=== PATIENT | female | born 1995 | race African-American/Black ===

== ENCOUNTER 2017-08-08 23:35 | Emergency (ER) | payer MEDICAID ==
[2014-08-02 15:45] VITALS: BMI 45.3
[~2017-08-08 23:35] MED LIST: NIFEDIPINE ER30 MG PO; PRENATAL COMPLE1 TAB PO; PRENAVITE1 TAB PO
[2017-08-09 00:18] LABS: APPEARANCE CLEAR (CLEAR); BACTERIA NONE SEEN /hpf (NONE SEEN); BILIRUBIN NEGATIVE (NEGATIVE); COLOR YELLOW (YELLOW); EPITHELIAL CELLS OCC /hpf (0-5); GLUCOSE NEGATIVE (NEGATIVE); KETONE NEGATIVE (NEGATIVE); NITRITE NEGATIVE (NEGATIVE); PROTEIN TRACE mg/dL (NEGATIVE); RED CELLS - URINE 0-5 /hpf (0-5); SPECIFIC GRAVITY 1.015 (1.005-1.020); UROBILINOGEN NORMAL (NORMAL); WHITE CELLS - URINE RARE /hpf (0-5)
[2017-08-09 00:19] LABS: BASOPHILS 0.2 % (0-2); HEMATOCRIT 41.4 % (36.0-48.0); HEMOGLOBIN 13.9 g/dL (12-16); IMMATURE GRANULOCYTES 0.3 % (0-5); LYMPHOCYTES 31.5 % (15-50); MCH 29.6 pg (26.0-34.0); MCHC 33.6 g/dL (31.0-37.0); MCV 88.1 fL (80.0-100.0); MEAN PLATELET VOLUME 11.1 fL (7.4-10.4); MONOCYTES 7.6 % (2-11); NEUTROPHILS 58.4 % (40-80); RDW 12.6 % (11.5-14.5); WBC 8.9 10x3/uL (4.8-10.8)
[2017-08-09 00:20] LABS: PLATELET COUNT 343 10x3/uL (130-400)
[2017-08-09 00:27] LABS: HCG SERUM NEGATIVE (NEGATIVE)
== END 2017-08-09 00:57 | disposition home or self-care (01) ==
LOC: D.ER 23:35
PROVIDERS: Emergency Medicine; Nurse Practitioner Family
DX: N93.9 Abnormal uterine and vaginal bleeding, unspecified (principal); N94.6 Dysmenorrhea, unspecified

== ENCOUNTER 2017-11-18 11:46 | Emergency (ER) | payer BC ==
[2014-08-02 15:45] VITALS: BMI 45.3
== END 2017-11-18 13:24 | disposition home or self-care (01) ==
LOC: D.ER 11:46
DX: H69.92 Unspecified Eustachian tube disorder, left ear (principal); M54.2 Cervicalgia

== ENCOUNTER 2019-04-02 23:14 | Emergency (ER) | payer MEDICAID ==
[~2019-04-02] VITALS: Ht 167.6 cm; Wt 104.5 kg
[2019-04-02 23:46] VITALS: BP 114/73; Ht 167.6 cm; Wt 104.5 kg
== END 2019-04-03 02:05 | disposition left against medical advice (07) ==
LOC: D.ER 23:14
DX: M54.5 Low back pain (principal)

== ENCOUNTER 2020-01-20 21:16 | Emergency (ER) | payer MEDICAID ==
[~2020-01-20] VITALS: Ht 160 cm; Wt 131.8 kg
[2020-01-20 21:31] VITALS: Ht 160 cm; Wt 131.8 kg
[2020-01-20 22:02] LABS: BASOPHILS 0.2 % (0-2); EOSINOPHILS 2.5 % (0-7); HEMATOCRIT 39.7 % (36.0-48.0); HEMOGLOBIN 12.8 g/dL (12-16); IMMATURE GRANULOCYTES 0.2 % (0-5); LYMPHOCYTES 24.4 % (15-50); MCH 28.5 pg (26.0-34.0); MCHC 32.2 g/dL (31.0-37.0); MCV 88.4 fL (80.0-100.0); MEAN PLATELET VOLUME 10.6 fL (7.4-10.4); MONOCYTES 7.2 % (2-11); NEUTROPHILS 65.5 % (40-80); PLATELET COUNT 314 10x3/uL (130-400); RBC 4.49 10x6/uL (4.00-5.40); RDW 13.1 % (11.5-14.5); WBC 10.1 10x3/uL (4.8-10.8)
[2020-01-20 22:04] LABS: BILIRUBIN NEGATIVE (NEGATIVE); GLUCOSE NEGATIVE (NEGATIVE); HCG URINE NEGATIVE (NEGATIVE); KETONE NEGATIVE (NEGATIVE); NITRITE NEGATIVE (NEGATIVE); UROBILINOGEN NORMAL (NORMAL)
[2020-01-20 22:10] LABS: EPITHELIAL CELLS 0-5 /hpf (0-5); RED CELLS - URINE >50 /hpf (0-5); WHITE CELLS - URINE 0-5 /hpf (NEGATIVE)
[2020-01-20 22:10] LABS: ANION GAP 10.9 mmol/L (8-16); CALCIUM 8.5 mg/dL (8.5-10.1); CARBON DIOXIDE 25.8 mmol/L (21.0-32.0); POTASSIUM - SERUM 3.7 mmol/L (3.5-5.1)
[2020-01-20 22:11] LABS: BACTERIA FEW /hpf (NEGATIVE)
[2020-01-20 22:15] LABS: ALBUMIN 3.4 g/dL (3.4-5.0); BILIRUBIN - TOTAL 0.44 mg/dL (0.2-1.3); PROTEIN - SERUM 7.5 g/dL (6.4-8.2)
[2020-01-20] MEDS ORDERED: PROVERA10 MG PO (22:43)
[2020-01-20] MEDS ORDERED: DICLOFENAC SODI50 MG PO (22:43)
[2020-01-20 23:00] VITALS: BP 140/92
== END 2020-01-20 23:00 | disposition home or self-care (01) ==
LOC: D.ER 21:16
PROVIDERS: Family Medicine
DX: N93.9 Abnormal uterine and vaginal bleeding, unspecified (principal); J45.909 Unspecified asthma, uncomplicated; R10.30 Lower abdominal pain, unspecified